=== PATIENT | female | born 1965 | race Caucasian/White ===

== ENCOUNTER 2018-03-14 23:26 | Emergency (ER) | payer BC, OTHER ==
[2018-03-14] MEDS ORDERED: PANTOPRAZOLE 40 MG/10 ML VIAL IVP STA (23:40)
[2018-03-14] MEDS ORDERED: SODIUM CHLORIDE 0.9% 1,000 ML IV STA (23:40)
[2018-03-14] MEDS ORDERED: ONDANSETRON 4 MG/2 ML VIAL IVP STA (23:40)
[2018-03-15 00:04] LABS: HCT 41.7 % (34.0-46.0); HGB 13.6 gm/dL (11.4-16.0); MCH 27.1 pg (25.0-35.0); MCHC 32.5 g/dL (31.0-37.0); MCV 83.4 fL (80.0-100.0); Mean Platelet Volume 7.5; Platelet Count 285 k/uL (150-450); RBC 5.01 m/uL (3.80-5.40); RDW 14.6 % (11.5-15.5); WBC 13.6 k/uL (3.8-10.6)
[2018-03-15 00:07] LABS: ALT 31 U/L (9-52); AST 20 U/L (14-36); Albumin 4.2 g/dL (3.5-5.0); Alkaline Phosphatase 109 U/L (38-126); Anion Gap 9 mmol/L; Blood Urea Nitrogen 13 mg/dL (7-17); Calcium 9.9 mg/dL (8.4-10.2); Carbon Dioxide 30 mmol/L (22-30); Chloride 101 mmol/L (98-107); Glucose 101 mg/dL (74-99); Lipase 41 U/L (23-300); Magnesium 1.8 mg/dL (1.6-2.3); Potassium 4.5 mmol/L (3.5-5.1); Sodium 140 mmol/L (137-145); Total Bilirubin 0.2 mg/dL (0.2-1.3); Total Protein 7.2 g/dL (6.3-8.2)
[2018-03-15 00:08] LABS: INR 0.9 (<1.2); Partial Thromboplastin Time 24.8 sec (22.0-30.0); Prothrombin Time 9.4 sec (9.0-12.0)
--- NOTE | 2018-03-15 00:19 | XR ---
EXAMINATION TYPE: XR abdomen acute w cxr DATE OF EXAM: 03/14/2018 COMPARISON: Chest x-ray 02/12/2016 HISTORY: Hemoptysis TECHNIQUE: Chest x-ray with supine and upright abdomen FINDINGS: There is no heart failure nor confluent pneumonic infiltrate. Thoracic aorta is atheromatous. Costoph renic angles are clear. Heart size is normal. There are chest leads. Bowel gas pattern is normal. There is no sign of intestinal obstruction or pneumoperitoneum. Fecal pa ttern is normal. There is no evidence of a mass. There are no pathologic calcifications over the kidn eys. There are clips from cholecystectomy. IMPRESSION: No active cardiopulmonary disease. Normal heart. Nonacute abdomen. Chest is stable compared to old ex am.
[2018-03-15 00:20] LABS: Creatine Kinase 83 U/L (30-135)
[2018-03-15 00:33] LABS: Creatine Kinase MB 0.9 ng/mL (0.0-2.4); Troponin I <0.012 ng/mL (0.000-0.034)
--- NOTE | 2018-03-15 00:42 | ED ---
General Adult HPI - General Chief complaint: Recheck/Abnormal Lab/Rx Stated complaint: abd pain,heart burn Time Seen by Provider: 03/14/18 23:35 Source: patient, RN notes reviewed, old records reviewed Mode of arrival: ambulatory Limitations: no limitations - History of Present Illness Initial comments: This is a 52-year-old female the ER for evaluation she presents today for evaluation of vomiting of blood. Patient states she is throughout the day is had 3 or 4 episodes of like she spit up some blood thinking that the blood clots. Patient has had no chest pain, mild heartburn. No abdominal pain. Patient is not on blood thinners. No significant chest pain or shortness of breath - Related Data Home Medications Medication Instructions Recorded Confirmed Ascorbic Acid [Vitamin C] 500 mg PO DAILY 02/12/16 02/12/16 Cephalexin [Keflex] 500 mg PO TID 02/12/16 02/12/16 Gabapentin [Neurontin] 300 mg PO BID 02/12/16 02/12/16 HYDROcodone/APAP 10-325MG [[place] 1 tab PO Q6H PRN 02/12/16 02/12/16 10-325] Ibuprofen [Motrin] 400 mg PO Q8H PRN 02/12/16 02/12/16 Lidocaine HCl [Aspercreme] 1 applic TOPICAL DAILY PRN 02/12/16 02/12/16 Menthol [Biofreeze] 1 applic TOPICAL DAILY PRN 02/12/16 02/12/16 Methocarbamol [Robaxin] 750 mg PO TID 02/12/16 02/12/16 Naproxen 500 mg PO BID 02/12/16 02/12/16 Oxybutynin Chloride [Ditropan] 5 mg PO DAILY 02/12/16 02/12/16 clonazePAM [KlonoPIN] 0.5 mg PO TID 02/12/16 02/12/16 metFORMIN HCL [Glucophage] 500 mg PO BID 02/12/16 02/12/16 Previous Rx's Medication Instructions Recorded Gabapentin [Neurontin] 100 mg PO TID #30 cap 02/12/16 Allergies Allergy/AdvReac Type Severity Reaction Status Date / Time Sulfa (Sulfonamide Allergy Rash/Hives Verified 03/14/18 23:33 Antibiotics) Review of Systems ROS Statement: Those systems with pertinent positive or pertinent negative responses have been documented in the HPI. ROS Other: All systems not noted in ROS Statement are negative. Past Medical History Past Medical History: No Reported History, Diabetes Mellitus Additional Past Medical History / Comment(s): neuropathy, back pain History of Any Multi-Drug Resistant Organisms: None Reported Past Surgical History: Cholecystectomy, Tubal Ligation Past Psychological History: Anxiety, Depression Smoking Status: Current every day smoker Past Alcohol Use History: Rare Past Drug Use History: None Reported General Exam Limitations: no limitations General appearance: alert, in no apparent distress Head exam: Present: atraumatic, normocephalic, normal inspection Eye exam: Present: normal appearance, PERRL, EOMI. Absent: scleral icterus, conjunctival injection, periorbital swelling ENT exam: Present: normal exam, mucous membranes moist Neck exam: Present: normal inspection. Absent: tenderness, meningismus, lymphadenopathy Respiratory exam: Present: normal lung sounds bilaterally. Absent: respiratory distress, wheezes, rales, rhonchi, stridor Cardiovascular Exam: Present: regular rate, normal rhythm, normal heart sounds. Absent: systolic murmur, diastolic murmur, rubs, gallop, clicks GI/Abdominal exam: Present: soft, normal bowel sounds. Absent: distended, tenderness, guarding, rebound, rigid Extremities exam: Present: normal inspection, full ROM, normal capillary refill. Absent: tenderness, pedal edema, joint swelling, calf tenderness Back exam: Present: normal inspection Neurological exam: Present: alert, oriented X3, CN II-XII intact Psychiatric exam: Present: normal affect, normal mood Skin exam: Present: warm, dry, intact, normal color. Absent: rash Course Vital Signs 03/14/18 03/15/18 03/15/18 23:29 01:03 01:05 Temperature 98.6 F 98.8 F Pulse Rate 89 93 Respiratory 16 18 16 Rate Blood Pressure 127/84 137/80 O2 Sat by Pulse 96 98 Oximetry - Reevaluation(s) Reevaluation #1: Patient has no active vomiting of blood here in the ER EKG Findings - EKG Comments: EKG Findings:: EKG shows sinus rhythm rate of 83, HI 140, QRS 90, QTc 41 Medical Decision Making - Medical Decision Making 52 female the ER with coughing or vomiting of blood. Patient is without any active coughing of vomiting of blood here in the ER. Hemoglobin is normal and stable vital signs normal and stable. - Lab Data Result diagrams: 03/14/18 23:45 03/14/18 23:45 Lab Results 03/14/18 03/14/18 03/14/18 Range/Units 23:45 23:45 23:45 WBC 13.6 H (3.8-10.6) k/uL RBC 5.01 (3.80-5.40) m/uL Hgb 13.6 (11.4-16.0) gm/dL Hct 41.7 (34.0-46.0) % MCV 83.4 (80.0-100.0) fL MCH 27.1 (25.0-35.0) pg MCHC 32.5 (31.0-37.0) g/dL RDW 14.6 (11.5-15.5) % Plt Count 285 (150-450) k/uL Neutrophils % (Manual) 43 % Lymphocytes % (Manual) 49 % Monocytes % (Manual) 2 % Eosinophils % (Manual) 6 % Neutrophils # (Manual) 5.85 (1.3-7.7) k/uL Lymphocytes # (Manual) 6.66 H (1.0-4.8) k/uL Monocytes # (Manual) 0.27 (0-1.0) k/uL Eosinophils # (Manual) 0.82 H (0-0.7) k/uL Nucleated RBCs 0 (0-0) /100 WBC Manual Slide Review Performed Large Platelets Present Anisocytosis (manual) Present PT (9.0-12.0) sec INR (<1.2) APTT (22.0-30.0) sec D-Dimer (<0.60) mg/L FEU Sodium 140 (137-145) mmol/L Potassium 4.5 (3.5-5.1) mmol/L Chloride 101 (98-107) mmol/L Carbon Dioxide 30 (22-30) mmol/L Anion Gap 9 mmol/L BUN 13 (7-17) mg/dL Creatinine 0.66 (0.52-1.04) mg/dL Est GFR (CKD-EPI)AfAm >90 (>60 ml/min/1.73 sqM) Est GFR (CKD-EPI)NonAf >90 (>60 ml/min/1.73 sqM) Glucose 101 H (74-99) mg/dL Calcium 9.9 (8.4-10.2) mg/dL Magnesium 1.8 (1.6-2.3) mg/dL Total Bilirubin 0.2 (0.2-1.3) mg/dL AST 20 (14-36) U/L ALT 31 (9-52) U/L Alkaline Phosphatase 109 (38-126) U/L Total Creatine Kinase 83 (30-135) U/L CK-MB (CK-2) 0.9 (0.0-2.4) ng/mL CK-MB (CK-2) Rel Index 1.1 Troponin I <0.012 (0.000-0.034) ng/mL Total Protein 7.2 (6.3-8.2) g/dL Albumin 4.2 (3.5-5.0) g/dL Lipase 41 (23-300) U/L 03/14/18 03/14/18 Range/Units 23:45 23:45 WBC (3.8-10.6) k/uL RBC (3.80-5.40) m/uL Hgb (11.4-16.0) gm/dL Hct (34.0-46.0) % MCV (80.0-100.0) fL MCH (25.0-35.0) pg MCHC (31.0-37.0) g/dL RDW (11.5-15.5) % Plt Count (150-450) k/uL Neutrophils % (Manual) % Lymphocytes % (Manual) % Monocytes % (Manual) % Eosinophils % (Manual) % Neutrophils # (Manual) (1.3-7.7) k/uL Lymphocytes # (Manual) (1.0-4.8) k/uL Monocytes # (Manual) (0-1.0) k/uL Eosinophils # (Manual) (0-0.7) k/uL Nucleated RBCs (0-0) /100 WBC Manual Slide Review Large Platelets Anisocytosis (manual) PT 9.4 (9.0-12.0) sec INR 0.9 (<1.2) APTT 24.8 (22.0-30.0) sec D-Dimer 0.23 (<0.60) mg/L FEU Sodium (137-145) mmol/L Potassium (3.5-5.1) mmol/L Chloride (98-107) mmol/L Carbon Dioxide (22-30) mmol/L Anion Gap mmol/L BUN (7-17) mg/dL Creatinine (0.52-1.04) mg/dL Est GFR (CKD-EPI)AfAm (>60 ml/min/1.73 sqM) Est GFR (CKD-EPI)NonAf (>60 ml/min/1.73 sqM) Glucose (74-99) mg/dL Calcium (8.4-10.2) mg/dL Magnesium (1.6-2.3) mg/dL Total Bilirubin (0.2-1.3) mg/dL AST (14-36) U/L ALT (9-52) U/L Alkaline Phosphatase (38-126) U/L Total Creatine Kinase (30-135) U/L CK-MB (CK-2) (0.0-2.4) ng/mL CK-MB (CK-2) Rel Index Troponin I (0.000-0.034) ng/mL Total Protein (6.3-8.2) g/dL Albumin (3.5-5.0) g/dL Lipase (23-300) U/L - Radiology Data Radiology results: report reviewed (X-ray abdominal series and chest is negative ), image reviewed Disposition Clinical Impression: Hematemesis Disposition: HOME SELF-CARE Condition: Good Instructions: Hematemesis (ED) Is patient prescribed a controlled substance at d/c from ED?: No Referrals: Dennise Sams DO [Primary Care Provider] - 1-2 days
[2018-03-15 00:43] LABS: Lymphocytes # (M) 6.66 k/uL (1.0-4.8); Neutrophils # (M) 5.85 k/uL (1.3-7.7); Neutrophils % (M) 43 %
[2018-03-15 00:44] LABS: Anisocytosis (M) Present; Eosinophils # (M) 0.82 k/uL (0-0.7); Large Platelets Present; Monocytes # (M) 0.27 k/uL (0-1.0); Nucleated Red Blood Cells 0 /100 WBC (0-0); Total Cells Counted 100
[2018-03-15 01:06] VITALS: BP 137/80; PULSE 93; RESP 16; TEMP 98.8
== END 2018-03-15 01:05 | disposition home or self-care (01) ==
LOC: EC 23:26
DX: K92.0 Hematemesis (principal); R12 Heartburn; E11.40 Type 2 diabetes mellitus with diabetic neuropathy, unspecified; F17.200 Nicotine dependence, unspecified, uncomplicated; Z79.84 Long term (current) use of oral hypoglycemic drugs; Z79.1 Long term (current) use of non-steroidal anti-inflammatories (NSAID); Z79.899 Other long term (current) drug therapy; Z88.2 Allergy status to sulfonamides; Z90.49 Acquired absence of other specified parts of digestive tract
CPT/HCPCS: 36415; 93005; 85379; 80053; 82550; 82553; 83690; 83735; 84484; 85025; 85610; 85730; 74022; 99284; 96374; 96375; 96361; J2405; C9113

== ENCOUNTER 2020-03-06 01:18 | Emergency (ER) | payer OTHER ==
[2020-03-06 01:32] VITALS: RESP 19
[2020-03-06] MEDS ORDERED: SODIUM CHLORIDE 0.9% 1,000 ML IV STA (01:48)
--- NOTE | 2020-03-06 01:49 | ED ---
Fever HPI - General Chief Complaint: Fever Stated Complaint: Fever, dizziness Time Seen by Provider: 03/06/20 01:48 Source: patient Mode of arrival: ambulatory - History of Present Illness Initial Comments: Nicolasa is a 54-year-old female who presents to the ER today for evaluation of dental pain, fever, decreased oral intake generalized weakness. Patient reports that she lost a crown on her tooth and due to COVID 191 she has not been able to see a dentist but is scheduled to do so this week. Patient states over the past week she's had progressively worsening pain around that tooth and some swelling. She states she hasn't been eating or drinking well because of it. She states that today she was feeling very unwell, lightheaded, she noted she had a fever. That time she decided to come to the ER for further evaluation. She denies any difficulty in speech or swallowing. Denies any tongue swelling. - Related Data Home Medications Medication Instructions Recorded Confirmed Ascorbic Acid [Vitamin C] 500 mg PO DAILY 02/12/16 02/12/16 Cephalexin [Keflex] 500 mg PO TID 02/12/16 02/12/16 Gabapentin [Neurontin] 300 mg PO BID 02/12/16 02/12/16 HYDROcodone/APAP 10-325MG [[place] 1 tab PO Q6H PRN 02/12/16 02/12/16 10-325] Ibuprofen [Motrin] 400 mg PO Q8H PRN 02/12/16 02/12/16 Lidocaine HCl [Aspercreme] 1 applic TOPICAL DAILY PRN 02/12/16 02/12/16 Menthol [Biofreeze] 1 applic TOPICAL DAILY PRN 02/12/16 02/12/16 Naproxen 500 mg PO BID 02/12/16 02/12/16 Oxybutynin Chloride [Ditropan] 5 mg PO DAILY 02/12/16 02/12/16 clonazePAM [KlonoPIN] 0.5 mg PO TID 02/12/16 02/12/16 metFORMIN HCL [Glucophage] 500 mg PO BID 02/12/16 02/12/16 methocarbamoL [Robaxin] 750 mg PO TID 02/12/16 02/12/16 Previous Rx's Medication Instructions Recorded Gabapentin [Neurontin] 100 mg PO TID #30 cap 08/08/16 Penicillin V Potassium [Pen Vee K] 500 mg PO Q6H #28 tablet 03/06/20 Allergies Allergy/AdvReac Type Severity Reaction Status Date / Time Sulfa (Sulfonamide Allergy Rash/Hives Verified 03/06/20 01:32 Antibiotics) Review of Systems ROS Statement: Those systems with pertinent positive or pertinent negative responses have been documented in the HPI. ROS Other: All systems not noted in ROS Statement are negative. Past Medical History Past Medical History: No Reported History, Asthma, Diabetes Mellitus Additional Past Medical History / Comment(s): neuropathy, back pain History of Any Multi-Drug Resistant Organisms: None Reported Past Surgical History: Cholecystectomy, Tubal Ligation Past Psychological History: Anxiety, Depression Past Alcohol Use History: Rare Past Drug Use History: None Reported General Exam - General Exam Comments Initial Comments: Physical Exam GENERAL: Patient is well-developed and well-nourished. Patient is nontoxic and well-hydrated and is in no distress. HENT: Normocephalic, Atraumatic. Poor dentition, cap broken off of tooth #4, surrounding erythema, no absess EYES: PERRL, EOMI PULMONARY: Unlabored respirations. No audible rales rhonchi or wheezing was noted. CARDIOVASCULAR: There is a regular rate and rhythm without any murmurs gallops or rubs. ABDOMEN: Soft and nontender with normal bowel sounds. SKIN: Skin is clear with no lesions or rashes and otherwise unremarkable. : Deferred NEUROLOGIC: Patient is alert and oriented x3. Moving all extremities spontaneously MUSCULOSKELETAL: Normal extremities with adequate strength and full range of motion. No lower extremity swelling or edema. No calf tenderness. PSYCHIATRIC: Normal psychiatric evaluation. Course Vital Signs 03/06/20 03/06/20 03/06/20 01:28 02:22 04:01 Temperature 98.6 F 98.5 F Pulse Rate 98 71 Respiratory 19 19 19 Rate Blood Pressure 173/99 134/74 O2 Sat by Pulse 97 98 Oximetry Medical Decision Making - Medical Decision Making She was seen and evaluated history is obtained from patient Patient with dental infection Labs are obtained there is mild leukocytosis no other significant abnormalities First dose of penicillin given the ER patient be discharged home with penicillin advised to follow with dentist as scheduled Return parameters were discussed patient was discharged home in stable condition - Lab Data Result diagrams: 03/06/20 01:49 03/06/20 01:49 Lab Results 03/06/20 03/06/20 03/06/20 Range/Units 01:49 01:49 01:49 WBC 15.6 H (3.8-10.6) k/uL RBC 5.02 (3.80-5.40) m/uL Hgb 13.3 (11.4-16.0) gm/dL Hct 41.7 (34.0-46.0) % MCV 82.9 (80.0-100.0) fL MCH 26.4 (25.0-35.0) pg MCHC 31.9 (31.0-37.0) g/dL RDW 14.5 (11.5-15.5) % Plt Count 313 (150-450) k/uL Neutrophils % (Manual) 54 % Lymphocytes % (Manual) 39 % Monocytes % (Manual) 5 % Eosinophils % (Manual) 2 % Neutrophils # (Manual) 8.42 H (1.3-7.7) k/uL Lymphocytes # (Manual) 6.08 H (1.0-4.8) k/uL Monocytes # (Manual) 0.78 (0-1.0) k/uL Eosinophils # (Manual) 0.31 (0-0.7) k/uL Nucleated RBCs 0 (0-0) /100 WBC Manual Slide Review Performed Hypochromasia Slight Sodium 139 (137-145) mmol/L Potassium 3.8 (3.5-5.1) mmol/L Chloride 101 (98-107) mmol/L Carbon Dioxide 30 (22-30) mmol/L Anion Gap 8 mmol/L BUN 8 (7-17) mg/dL Creatinine 0.52 (0.52-1.04) mg/dL Est GFR (CKD-EPI)AfAm >90 (>60 ml/min/1.73 sqM) Est GFR (CKD-EPI)NonAf >90 (>60 ml/min/1.73 sqM) Glucose 165 H (74-99) mg/dL Plasma Lactic Acid Luis (0.7-2.0) mmol/L Calcium 9.2 (8.4-10.2) mg/dL Total Bilirubin 0.2 (0.2-1.3) mg/dL AST 19 (14-36) U/L ALT 19 (4-34) U/L Alkaline Phosphatase 142 H (38-126) U/L Total Protein 7.0 (6.3-8.2) g/dL Albumin 4.3 (3.5-5.0) g/dL Urine Color Colorless Urine Appearance Clear (Clear) Urine pH 6.0 (5.0-8.0) Ur Specific [place] 1.002 (1.001-1.035) Urine Protein Negative (Negative) Urine Glucose (UA) Negative (Negative) Urine Ketones Negative (Negative) Urine Blood Negative (Negative) Urine Nitrite Negative (Negative) Urine Bilirubin Negative (Negative) Urine Urobilinogen <2.0 (<2.0) mg/dL Ur Leukocyte Esterase Negative (Negative) 03/06/20 Range/Units 01:49 WBC (3.8-10.6) k/uL RBC (3.80-5.40) m/uL Hgb (11.4-16.0) gm/dL Hct (34.0-46.0) % MCV (80.0-100.0) fL MCH (25.0-35.0) pg MCHC (31.0-37.0) g/dL RDW (11.5-15.5) % Plt Count (150-450) k/uL Neutrophils % (Manual) % Lymphocytes % (Manual) % Monocytes % (Manual) % Eosinophils % (Manual) % Neutrophils # (Manual) (1.3-7.7) k/uL Lymphocytes # (Manual) (1.0-4.8) k/uL Monocytes # (Manual) (0-1.0) k/uL Eosinophils # (Manual) (0-0.7) k/uL Nucleated RBCs (0-0) /100 WBC Manual Slide Review Hypochromasia Sodium (137-145) mmol/L Potassium (3.5-5.1) mmol/L Chloride (98-107) mmol/L Carbon Dioxide (22-30) mmol/L Anion Gap mmol/L BUN (7-17) mg/dL Creatinine (0.52-1.04) mg/dL Est GFR (CKD-EPI)AfAm (>60 ml/min/1.73 sqM) Est GFR (CKD-EPI)NonAf (>60 ml/min/1.73 sqM) Glucose (74-99) mg/dL Plasma Lactic Acid Luis 1.4 (0.7-2.0) mmol/L Calcium (8.4-10.2) mg/dL Total Bilirubin (0.2-1.3) mg/dL AST (14-36) U/L ALT (4-34) U/L Alkaline Phosphatase (38-126) U/L Total Protein (6.3-8.2) g/dL Albumin (3.5-5.0) g/dL Urine Color Urine Appearance (Clear) Urine pH (5.0-8.0) Ur Specific [place] (1.001-1.035) Urine Protein (Negative) Urine Glucose (UA) (Negative) Urine Ketones (Negative) Urine Blood (Negative) Urine Nitrite (Negative) Urine Bilirubin (Negative) Urine Urobilinogen (<2.0) mg/dL Ur Leukocyte Esterase (Negative) Disposition Clinical Impression: Dental infection Disposition: HOME SELF-CARE Condition: Stable Instructions (If sedation given, give patient instructions): Fever in Adults (ED) Additional Instructions: As we discussed have a dental infection, he needs to take the antibiotics as prescribed, contact her dentist to see if he'll follow-up this week rather than next week Return to the ER for any worsening of her condition including fever that doesn't respond to medications, vomiting or inability to tolerate her oral antibiotics or any new or concerning symptoms Prescriptions: Penicillin V Potassium [Pen Vee K] 500 mg PO Q6H #28 tablet Is patient prescribed a controlled substance at d/c from ED?: No Referrals: Dennise Sams DO [Primary Care Provider] - 1-2 days
[2020-03-06 02:26] LABS: HCT 41.7 % (34.0-46.0); HGB 13.3 gm/dL (11.4-16.0); Hypochromasia Slight; MCH 26.4 pg (25.0-35.0); MCHC 31.9 g/dL (31.0-37.0); MCV 82.9 fL (80.0-100.0); Mean Platelet Volume 8.3; Platelet Count 313 k/uL (150-450); RBC 5.02 m/uL (3.80-5.40); RDW 14.5 % (11.5-15.5); WBC 15.6 k/uL (3.8-10.6)
[2020-03-06 02:27] LABS: Appearance,Urine Clear (Clear); Bilirubin,Urine Negative (Negative); Blood,Urine Negative (Negative); Color,Urine Colorless; Glucose,Urine (UA) Negative (Negative); Ketones,Urine Negative (Negative); Leukocyte Esterase,Urine Negative (Negative); Nitrite,Urine Negative (Negative); Protein,Urine Negative (Negative); Specific Gravity,Urine 1.002 (1.001-1.035); Urobilinogen,Urine <2.0 mg/dL (<2.0)
[2020-03-06 02:35] LABS: ALT 19 U/L (4-34); AST 19 U/L (14-36); African American GFR (CKD) >90 (>60 ml/min/1.73 sqM); Albumin 4.3 g/dL (3.5-5.0); Alkaline Phosphatase 142 U/L (38-126); Anion Gap 8 mmol/L; Blood Urea Nitrogen 8 mg/dL (7-17); Calcium 9.2 mg/dL (8.4-10.2); Carbon Dioxide 30 mmol/L (22-30); Chloride 101 mmol/L (98-107); Glucose 165 mg/dL (74-99); Non-African American GFR(CKD) >90 (>60 ml/min/1.73 sqM); Potassium 3.8 mmol/L (3.5-5.1); Sodium 139 mmol/L (137-145); Total Bilirubin 0.2 mg/dL (0.2-1.3)
[2020-03-06 02:42] LABS: Eosinophils # (M) 0.31 k/uL (0-0.7); Lymphocytes # (M) 6.08 k/uL (1.0-4.8); Monocytes # (M) 0.78 k/uL (0-1.0); Neutrophils # (M) 8.42 k/uL (1.3-7.7); Neutrophils % (M) 54 %; Nucleated Red Blood Cells 0 /100 WBC (0-0); Total Cells Counted 100
--- NOTE | 2020-03-06 02:58 | XR ---
EXAMINATION TYPE: XR chest 2V DATE OF EXAM: 03/06/2020 COMPARISON: 03/14/2018 HISTORY: Fever TECHNIQUE: 2 views FINDINGS: Heart and mediastinum are normal. Lungs are clear. Diaphragm is normal. Bony thorax appears normal. IMPRESSION: Normal chest. No change.
[2020-03-06] MEDS ORDERED: PENICILLIN VK 500MG STARTER 4 TAB BTL PO STA (03:11)
[2020-03-06 04:03] VITALS: BP 134/74; PULSE 71; TEMP 98.5
== END 2020-03-06 04:01 | disposition home or self-care (01) ==
LOC: EC 01:18
DX: K04.7 Periapical abscess without sinus (principal); F41.9 Anxiety disorder, unspecified; F32.9 Major depressive disorder, single episode, unspecified; E11.40 Type 2 diabetes mellitus with diabetic neuropathy, unspecified; Z79.84 Long term (current) use of oral hypoglycemic drugs; Z79.899 Other long term (current) drug therapy; Z88.2 Allergy status to sulfonamides
CPT/HCPCS: 36415; 71046; 80053; 81003; 83605; 85025; 96360; 96361; 99283